=== PATIENT | male | born 1965 | race Caucasian/White ===

== ENCOUNTER 2018-09-06 12:08 | Inpatient (IN) | payer OTHER ==
[2018-09-06 12:34] VITALS: BMI 27.2
--- NOTE | 2018-09-06 17:14 | HP ---
CIWA Score Nausea/Vomitin Muscle Tremors: 4-Moderate,w/Arms Extend Anxiety: 2 Agitation: 2 Paroxysmal Sweats: 1-Minimal Palms Moist Orientation: 0-Oriented Tacttile Disturbances: 0-None Auditory Disturbances: 0-None Visual Disturbances: 0-None Headache: 0-None Present CIWA-Ar Total Score: 11 - Admission Criteria OASAS Guidelines: Admission for Medically Managed Detox: Requires at least one of the followin. CIWA greater than 12 2. Seizures within the past 24 hours 3. Delirium tremens within the past 24 hours 4. Hallucinations within the past 24 hours 5. Acute intervention needed for co occurring medical disorder 6. Acute intervention needed for co occurring psychiatric disorder 7. Severe withdrawal that cannot be handled at a lower level of care (continued vomiting, continued diarrhea, abnormal vital signs) requiring intravenous medication and/or fluids 8. Patient presents the following: Seizures, delirium tremens or hallucinations in the past 12 hours Admission Criteria Met: Admission criteria met Admission ROS S - HPI Chief Complaint: alcohol detox. 52 yo with h/o mental health issues- not taking meds, with alcohol. alcohol- 2 pints a day- h/o seizures/DT's DUR- no meds Utox benzo- takes something EMANUEL- 0.150 Allergies/Adverse Reactions: Allergies Allergy/AdvReac Type Severity Reaction Status Date / Time No Known Allergies Allergy Verified 09/06/18 16:35 Exam Limitations: Clinical Condition, Other (restless) - Ebola screening Have you traveled outside of the country in the last 21 days: No Have you had contact with anyone from an Ebola affected area: No Have you been sick,other than usual withdrawal symptoms: No Do you have a fever: No Patient History - Patient Medical History Hx Asthma: No Hx Chronic Obstructive Pulmonary Disease (COPD): No Hx Cardiac Disorders: Yes (Pt states he was recently dx with AFIB.) Hx Hypertension: No Hx Seizures: Yes (etoh related seizures last 1 week ago.) Hx Diabetes: No Hx Gastrointestinal Disorders: No Hx Genitourinary Disorders: No Hx Sexually Transmitted Disorders: No Hx Renal Disease (ESRD): No Hx Depression: Yes Hx Suicide Attempt: No Hx Schizophrenia: No Other Medical History: testicular cancer- treated - Patient Surgical History Past Surgical History: Yes Other Surgical History: L teste removed in 2000 Anesthesia Reaction: No - PPD History Previous Implant?: Yes Documented Results: Negative w/o proof Implanted On Prior [facility] Admission?: No - Smoking Cessation Smoking history: Never smoked - Substances Abused Alcohol Route: Oral Frequency: Daily Amount used: 2 PINTS VODKA Age of first use: 15 Date of Last Use: 09/06/18 Family Disease History - Family Disease History Family Disease History: Heart Disease: Father, [place]: Mother, Brother Admission Physical Exam [facility] - Vital Signs Vital Signs: Vital Signs - 24 hr 09/06/18 12:33 Temperature 96.9 F L Pulse Rate 110 H Respiratory 18 Rate Blood Pressure 148/100 - Physical General Appearance: Yes: Disheveled, Moderate Distress, Tremorous, Irritable, Anxious HEENTM: Yes: Within Normal Limits Respiratory: Yes: Within Normal Limits, Lungs Clear Cardiology: Yes: Within Normal Limits, Regular Rhythm (no evidence of a fib), Regular Rate, S1, S2 Abdominal: Yes: Within Normal Limits, Non Tender Genitourinary: Yes: Within Normal Limits Back: Yes: Within Normal Limits Musculoskeletal: Yes: Within Normal Limits, full range of Motion Extremities: Yes: Within Normal Limits Neurological: Yes: Within Normal Limits (facial rubor, scaly rash) Lymphatic: Yes: Within Normal Limits - Diagnostic (1) Alcohol use disorder Current Visit: Yes Status: Acute Cleared for Admission [facility] - Detox or Rehab [facility] Level of Care: Medically Managed [facility] Breath Alcohol Content Breath Alcohol Content: 0.150 Urine Drug Screen - Results Drug Screen Negative: No Urine Drug Screen Results: BZO-Benzodiazepines
[2018-09-06] MEDS ORDERED: MAGNESIUM CITRATE 300 ML BOTTLE PO PRN (17:22)
[2018-09-06] MEDS ORDERED: MENTHOL/PHENOL 1 EACH UD MM PRN (17:22)
[2018-09-06] MEDS ORDERED: ACETAMINOPHEN 325 MG TABLET (FP) PO PRN (17:22)
[2018-09-06] MEDS ORDERED: guaiFENesin/D-METHORPHAN HB 10 ML UNIT-DOSE CUPS PO PRN (17:22)
[2018-09-06] MEDS ORDERED: IBUPROFEN 400 MG TABLET (FP) PO PRN (17:22)
[2018-09-06] MEDS ORDERED: MAGNESIUM HYDROX 2400MG/30ML ORAL SUSPENSION 30 ML CUP PO PRN (17:22)
[2018-09-06] MEDS ORDERED: LOPERAMIDE HCL 2 MG CAPSULE PO PRN (17:22)
[2018-09-06] MEDS ORDERED: P-EPHED 60MG/TRIPROLIDI 2.5MG TABLET PO PRN (17:22)
[2018-09-06] MEDS ORDERED: MAG HYDROX/AL HYDROX/SIMETH 30 ML UNIT-DOSE CUP PO PRN (17:22)
[2018-09-06] MEDS ORDERED: chlordiazePOXIDE HCL 25 MG CAPSULE PO PRN (17:24)
[2018-09-06] MEDS ORDERED: chlordiazePOXIDE HCL 25 MG CAPSULE PO ONE (17:45)
[2018-09-06] MEDS: hydrOXYzine PAMOATE 50 MG CAPSULE (FP) PO PRN (19:17)
[2018-09-06] MEDS ORDERED: MELATONIN 5 MG TABLETS PO PRN (22:00)
[2018-09-06] MEDS: chlordiazePOXIDE HCL 25 MG CAPSULE PO SCH (22:05)
[2018-09-06] MEDS: THIAMINE HCL 100 MG TABLET (FP) PO SCH (22:05)
[2018-09-07 02:07] LABS: URINE APPEARANCE CLEAR; URINE BILIRUBIN NEGATIVE (<2.0 mg/dL); URINE COLOR YELLOW; URINE GLUCOSE (UA) NEGATIVE (NEGATIVE); URINE KETONE TRACE (NEGATIVE); URINE LEUK ESTERASE NEGATIVE (NEGATIVE); URINE NITRITE NEGATIVE (NEGATIVE); URINE PROTEIN 2+ (NEGATIVE); URINE UROBILINOGEN NEGATIVE mg/dL (0.2-1.0)
[2018-09-07 02:24] LABS: EPI CELLS RARE /HPF (FEW); GRANULAR CASTS 10 /lpf; URINE HYALINE CAST 7 /lpf; URINE MUCUS RARE
[2018-09-07] MEDS: chlordiazePOXIDE HCL 25 MG CAPSULE PO SCH ×4 (05:46→22:25)
[2018-09-07] MEDS: PRENATAL VITAMINS W/ FOLIC ACID TABLET (FP) PO SCH (10:00)
[2018-09-07 10:47] LABS: HEMATOCRIT 39.4 % (35.4-49); HEMOGLOBIN 13.4 GM/dL (11.7-16.9); MCH 30.2 pg (25.7-33.7); MCHC 34.1 g/dl (32.0-35.9); MEAN CELL VOLUME 88.7 fl (80-96); MEAN PLT VOLUME 8.9 fl (7.5-11.1); PLATELET COUNT 239 K/MM3 (134-434); RBC 4.45 M/mm3 (4.00-5.60); RDW 14.9 % (11.9-15.9); WHITE BLOOD COUNT 6.4 K/mm3 (4.0-10.0)
[2018-09-07 10:48] LABS: ALK PHOS 96 U/L (45-117); ANION GAP 12 MMOL/L (8-16); BLOOD UREA NITROGEN 8 mg/dL (7-18); CALCIUM 9.4 mg/dL (8.5-10.1); CHLORIDE 97 mmol/L (98-107); CO2 26 mmol/L (21-32); CREATININE 0.7 mg/dL (0.55-1.3); GLUCOSE,RANDOM 127 mg/dL (74-106); POTASSIUM 3.8 mmol/L (3.5-5.1); SGOT/AST 36 U/L (15-37); SGPT/ALT 32 U/L (13-61); SODIUM 135 mmol/L (136-145); TOT PROT 7.6 g/dl (6.4-8.2)
--- NOTE | 2018-09-07 11:54 | CONSULT ---
[facility] Psychiatric Consult - Data Date of interview: 09/07/18 Admission source: Friend Identifying data: Mr Owens is a 52 years old male, father of a 20 years old daughter, employed parttime in a car wash, residing at the [facility] seeking detox treatment for alcohol and opioid Substance Abuse History: Reports history of alcohol and heroin use. Refer to addiction counselor's summary for further information Medical History: Significant for atrial fibrillation and history of alcohol withdrawal seizure and and surgery for removal of left testicle for cancer. Psychiatric History: Reports being diagnosed with PTSD/Anxiety years ago. Reports receiving psychiatric treatment on & off at different facilities including [facility] in [place] and [facility] in [place], [place]. He was recently discharged from inpt rehab at [facility] on on Trazadone 50 mg po HS, Seroquel 100 mg po HS, Remeron 15 mg po HS and Buspar 10 mg po TID. Reports hardly taking medications since discharge. He expresses desire to resume taking them during this admission course. Denies previous suicidal attempt. At present, reports feeling anxious and sleeping poorly Physical/Sexual Abuse/Trauma History: Denies history of emotional, physical or sexual abuse as well as DV relationship. No service Mental Status Exam - Mental Status Exam Alert and Oriented to: Time, Place, Person Cognitive Function: Fair Patient Appearance: Well Groomed Mood: Anxious Affect: Appropriate Patient Behavior: Cooperative Speech Pattern: Clear Voice Loudness: Normal Thought Process: Intact, Goal Oriented Thought Disorder: Not Present Hallucinations: Denies Suicidal Ideation: Denies Homicidal Ideation: Denies Insight/Judgement: Fair Sleep: Poorly Appetite: Good Muscle strength/Tone: Normal Gait/Station: Normal Psychiatric Findings - Problem List ([place] 1, 2,3) (1) PTSD (post-traumatic stress disorder) Current Visit: Yes Status: Chronic (2) Alcohol-induced anxiety disorder Current Visit: Yes Status: Acute (3) Alcohol-induced sleep disorder Current Visit: Yes Status: Acute (4) Afib Current Visit: Yes Status: Chronic (5) Testicle cancer Current Visit: Yes Status: Resolved - Initial Treatment Plan Initial Treatment Plan: 1) Resume Buspar 10 mg po TID, Seroquel 10 mg po HS and Trazadone 50 mg po HS. 2) Continue inpatient detoxification
[2018-09-07] MEDS ORDERED: PANTOPRAZOLE 40 MG TABLET (FP) PO ONE (13:40)
[2018-09-07] MEDS: busPIRone HCL 10 MG TABLET (FP) PO SCH ×2 (14:55→21:35)
--- NOTE | 2018-09-07 18:28 | PN ---
S CIWA - CIWA Score Nausea/Vomitin-No Nausea/No Vomiting Muscle Tremors: 3 Anxiety: 4-Mod. Anxious/Guarded Agitation: 3 Paroxysmal Sweats: 3 Orientation: 0-Oriented Tacttile Disturbances: 2-Mild Itch/Numbness/Burn Auditory Disturbances: 0-None Visual Disturbances: 0-None Headache: 0-None Present CIWA-Ar Total Score: 15 BHS Progress Note (SOAP) Subjective: Sweating, Tremors, Interrupted Sleep, Anxious, Diarrhea. Objective: PATIENT A & O X 3, OBSERVED AMBULATING ON UNIT. IN NO ACUTE DISTRESS. 09/07/18 18:25 Vital Signs Temperature 99.3 F 09/07/18 17:18 Pulse Rate 96 H 09/07/18 17:18 Respiratory Rate 20 09/07/18 17:18 Blood Pressure 133/80 09/07/18 17:18 O2 Sat by Pulse Oximetry (%) Laboratory Tests 09/07/18 09/07/18 09/07/18 00:30 07:00 07:00 WBC 6.4 RBC 4.45 Hgb 13.4 Hct 39.4 MCV 88.7 MCH 30.2 MCHC 34.1 RDW 14.9 Plt Count 239 MPV 8.9 Sodium 135 L Potassium 3.8 Chloride 97 L Carbon Dioxide 26 Anion Gap 12 BUN 8 Creatinine 0.7 Creat Clearance w eGFR > 60 Random Glucose 127 H Calcium 9.4 Total Bilirubin 2.0 H AST 36 ALT 32 Alkaline Phosphatase 96 Total Protein 7.6 Albumin 4.0 Urine Color Yellow Urine Appearance Clear Urine pH 5.0 Ur Specific [place] 1.018 Urine Protein 2+ H Urine Glucose (UA) Negative Urine Ketones Trace H Urine Blood 1+ H Urine Nitrite Negative Urine Bilirubin Negative Urine Urobilinogen Negative Ur Leukocyte Esterase Negative Urine WBC (Auto) 1 Urine RBC (Auto) 1 Ur Epithelial Cells Rare Hyaline Casts 7 Granular Casts 10 Urine Mucus Rare LABS NOTED. RPR RESULT PENDING. 09/07/18 18:27 Assessment: 09/07/18 18:26 WITHDRAWAL SYMPTOMS. Plan: CONTINUE DETOX. INCREASE DAILY PO FLUID INTAKE. PRN IMMODIUM PO FOR DIARRHEA..
[2018-09-07] MEDS: QUEtiapine FUMARATE 100 MG TABLET (FP) PO SCH (21:35)
[2018-09-07] MEDS: traZODone HCL 50 MG TABLET (FP) PO SCH (21:35)
[2018-09-07] MEDS: THIAMINE HCL 100 MG TABLET (FP) PO SCH (21:35)
[2018-09-08] MEDS: chlordiazePOXIDE HCL 25 MG CAPSULE PO SCH ×3 (05:39→17:16)
[2018-09-08] MEDS: busPIRone HCL 10 MG TABLET (FP) PO SCH ×3 (05:39→22:06)
[2018-09-08] MEDS: PANTOPRAZOLE 40 MG TABLET (FP) PO SCH (05:41)
[2018-09-08] MEDS: PRENATAL VITAMINS W/ FOLIC ACID TABLET (FP) PO SCH (10:04)
[2018-09-08] MEDS: hydrOXYzine PAMOATE 50 MG CAPSULE (FP) PO PRN ×2 (13:54→22:09)
--- NOTE | 2018-09-08 15:56 | PN ---
[facility] CIWA - CIWA Score Nausea/Vomitin-No Nausea/No Vomiting Muscle Tremors: None Anxiety: 4-Mod. Anxious/Guarded Agitation: 3 Paroxysmal Sweats: 2 Orientation: 0-Oriented Tacttile Disturbances: 2-Mild Itch/Numbness/Burn Auditory Disturbances: 0-None Visual Disturbances: 0-None Headache: 0-None Present CIWA-Ar Total Score: 11 S Progress Note (SOAP) Subjective: Diarrhea, Anxious, Sweating. Objective: PATIENT A & O X 3, OBSERVED AMBULATING ON UNIT. IN NO ACUTE DISTRESS. 09/08/18 15:56 Vital Signs Temperature 97.5 F L 09/08/18 13:59 Pulse Rate 108 H 09/08/18 13:59 Respiratory Rate 18 09/08/18 13:59 Blood Pressure 133/82 09/08/18 13:59 O2 Sat by Pulse Oximetry (%) Laboratory Tests 09/07/18 09/07/18 09/07/18 00:30 07:00 07:00 WBC 6.4 RBC 4.45 Hgb 13.4 Hct 39.4 MCV 88.7 MCH 30.2 MCHC 34.1 RDW 14.9 Plt Count 239 MPV 8.9 Sodium 135 L Potassium 3.8 Chloride 97 L Carbon Dioxide 26 Anion Gap 12 BUN 8 Creatinine 0.7 Creat Clearance w eGFR > 60 Random Glucose 127 H Calcium 9.4 Total Bilirubin 2.0 H AST 36 ALT 32 Alkaline Phosphatase 96 Total Protein 7.6 Albumin 4.0 Urine Color Yellow Urine Appearance Clear Urine pH 5.0 Ur Specific [place] 1.018 Urine Protein 2+ H Urine Glucose (UA) Negative Urine Ketones Trace H Urine Blood 1+ H Urine Nitrite Negative Urine Bilirubin Negative Urine Urobilinogen Negative Ur Leukocyte Esterase Negative Urine WBC (Auto) 1 Urine RBC (Auto) 1 Ur Epithelial Cells Rare Hyaline Casts 7 Granular Casts 10 Urine Mucus Rare RPR Titer 09/07/18 07:00 WBC RBC Hgb Hct MCV MCH MCHC RDW Plt Count MPV Sodium Potassium Chloride Carbon Dioxide Anion Gap BUN Creatinine Creat Clearance w eGFR Random Glucose Calcium Total Bilirubin AST ALT Alkaline Phosphatase Total Protein Albumin Urine Color Urine Appearance Urine pH Ur Specific [place] Urine Protein Urine Glucose (UA) Urine Ketones Urine Blood Urine Nitrite Urine Bilirubin Urine Urobilinogen Ur Leukocyte Esterase Urine WBC (Auto) Urine RBC (Auto) Ur Epithelial Cells Hyaline Casts Granular Casts Urine Mucus RPR Titer Nonreactive LABS NOTED. Assessment: 09/08/18 15:57 WITHDRAWAL SYMPTOMS. Plan: CONTINUE DETOX. INCREASE DAILY PO FLUID INTAKE. PRN IMMODIUM PO FOR DIARRHEA.
[2018-09-08] MEDS: traZODone HCL 50 MG TABLET (FP) PO SCH (22:03)
[2018-09-08] MEDS: THIAMINE HCL 100 MG TABLET (FP) PO SCH (22:03)
[2018-09-08] MEDS: QUEtiapine FUMARATE 100 MG TABLET (FP) PO SCH (22:03)
[2018-09-08] MEDS: chlordiazePOXIDE 5 MG CAPSULE PO SCH (22:04)
[2018-09-09] MEDS: busPIRone HCL 10 MG TABLET (FP) PO SCH ×3 (05:34→22:04)
[2018-09-09] MEDS: chlordiazePOXIDE 5 MG CAPSULE PO SCH ×3 (05:34→17:31)
[2018-09-09] MEDS: PANTOPRAZOLE 40 MG TABLET (FP) PO SCH (05:34)
[2018-09-09] MEDS: hydrOXYzine PAMOATE 50 MG CAPSULE (FP) PO PRN ×2 (09:46→15:55)
[2018-09-09] MEDS: PRENATAL VITAMINS W/ FOLIC ACID TABLET (FP) PO SCH (09:46)
--- NOTE | 2018-09-09 10:12 | PN ---
[facility] Progress Note (SOAP) Subjective: feeling better mild tremor less sweating social with peers in day room discuss aftercare Objective: 09/09/18 10:10 Vital Signs Temperature 97.0 F L 09/09/18 09:40 Pulse Rate 105 H 09/09/18 09:40 Respiratory Rate 18 09/09/18 09:40 Blood Pressure 132/78 09/09/18 09:40 O2 Sat by Pulse Oximetry (%) Laboratory Last Values WBC 6.4 K/mm3 (4.0-10.0) 09/07/18 07:00 RBC 4.45 M/mm3 (4.00-5.60) 09/07/18 07:00 Hgb 13.4 GM/dL (11.7-16.9) 09/07/18 07:00 Hct 39.4 % (35.4-49) 09/07/18 07:00 MCV 88.7 fl (80-96) 09/07/18 07:00 MCH 30.2 pg (25.7-33.7) 09/07/18 07:00 MCHC 34.1 g/dl (32.0-35.9) 09/07/18 07:00 RDW 14.9 % (11.9-15.9) 09/07/18 07:00 Plt Count 239 K/MM3 (134-434) 09/07/18 07:00 MPV 8.9 fl (7.5-11.1) 09/07/18 07:00 Sodium 135 mmol/L (136-145) L 09/07/18 07:00 Potassium 3.8 mmol/L (3.5-5.1) 09/07/18 07:00 Chloride 97 mmol/L (98-107) L 09/07/18 07:00 Carbon Dioxide 26 mmol/L (21-32) 09/07/18 07:00 Anion Gap 12 MMOL/L (8-16) 09/07/18 07:00 BUN 8 mg/dL (7-18) 09/07/18 07:00 Creatinine 0.7 mg/dL (0.55-1.3) 09/07/18 07:00 Creat Clearance w eGFR > 60 (>60) 09/07/18 07:00 Random Glucose 127 mg/dL (74-106) H 09/07/18 07:00 Calcium 9.4 mg/dL (8.5-10.1) 09/07/18 07:00 Total Bilirubin 2.0 mg/dL (0.2-1) H 09/07/18 07:00 AST 36 U/L (15-37) 09/07/18 07:00 ALT 32 U/L (13-61) 09/07/18 07:00 Alkaline Phosphatase 96 U/L (45-117) 09/07/18 07:00 Total Protein 7.6 g/dl (6.4-8.2) 09/07/18 07:00 Albumin 4.0 g/dl (3.4-5.0) 09/07/18 07:00 Urine Color Yellow 09/07/18 00:30 Urine Appearance Clear 09/07/18 00:30 Urine pH 5.0 (5.0-8.0) 09/07/18 00:30 Ur Specific [place] 1.018 (1.010-1.035) 09/07/18 00:30 Urine Protein 2+ (NEGATIVE) H 09/07/18 00:30 Urine Glucose (UA) Negative (NEGATIVE) 09/07/18 00:30 Urine Ketones Trace (NEGATIVE) H 09/07/18 00:30 Urine Blood 1+ (NEGATIVE) H 09/07/18 00:30 Urine Nitrite Negative (NEGATIVE) 09/07/18 00:30 Urine Bilirubin Negative (<2.0 mg/dL) 09/07/18 00:30 Urine Urobilinogen Negative mg/dL (0.2-1.0) 09/07/18 00:30 Ur Leukocyte Esterase Negative (NEGATIVE) 09/07/18 00:30 Urine WBC (Auto) 1 /hpf (3-5) 09/07/18 00:30 Urine RBC (Auto) 1 /hpf (0-3) 09/07/18 00:30 Ur Epithelial Cells Rare /HPF (FEW) 09/07/18 00:30 Hyaline Casts 7 /lpf 09/07/18 00:30 Granular Casts 10 /lpf 09/07/18 00:30 Urine Mucus Rare 09/07/18 00:30 RPR Titer Nonreactive (NONREACTIVE) 09/07/18 07:00 lab noted discuss important of oral hydration and healthy life style such as nutrition Assessment: 02/03/19 10:12 mild withdrawal sx Plan: continue detox
[2018-09-09] MEDS ORDERED: BENZOCAINE 28 GM HEMORRHOIDAL OINTMENT PR PRN (13:25)
--- NOTE | 2018-09-09 15:47 | EKG ---
Test Reason : Blood Pressure : / mmHG Vent. Rate : 096 BPM Atrial Rate : 096 BPM P-R Int : 204 ms QRS Dur : 094 ms QT Int : 360 ms P-R-T Axes : 046 -07 030 degrees QTc Int : 454 ms NORMAL SINUS RHYTHM NORMAL ECG NO PREVIOUS ECGS AVAILABLE Confirmed by YUMIKO DASILVA MD ([id number]) on 09/09/2018 3:46:43 PM Referred By: Confirmed By:YUMIKO DASILVA MD
[2018-09-09] MEDS: traZODone HCL 50 MG TABLET (FP) PO SCH (22:04)
[2018-09-09] MEDS: THIAMINE HCL 100 MG TABLET (FP) PO SCH (22:04)
[2018-09-09] MEDS: chlordiazePOXIDE HCL 10 MG CAPSULE PO SCH (22:04)
[2018-09-09] MEDS: QUEtiapine FUMARATE 100 MG TABLET (FP) PO SCH (22:04)
[2018-09-10] MEDS: chlordiazePOXIDE HCL 10 MG CAPSULE PO SCH (05:36)
[2018-09-10] MEDS: busPIRone HCL 10 MG TABLET (FP) PO SCH (05:36)
[2018-09-10] MEDS: PANTOPRAZOLE 40 MG TABLET (FP) PO SCH (07:00)
[2018-09-10 09:10] VITALS: BP 118/81; PULSE 101; TEMP 96.3
--- NOTE | 2018-09-10 10:53 | DS ---
[facility] Detox Discharge Summary Admission Date: 09/06/18 Discharge Date: 09/10/18 - History Present History: Alcohol Dependence Additional Comments: 32 years old male admitted on 09/06/18 for alcohol withdrawal stabilization completed alcohol detox regimen aftercare [facility] Pertinent Past History: provided list of medication informed bring medication list and medication bottles to medical mental and addiction appointments update medication list if any change in medications bring lab results to aftercare appointments - Physical Exam Results Vital Signs: Vital Signs Temperature 96.3 F L 09/10/18 09:09 Pulse Rate 101 H 09/10/18 09:09 Respiratory Rate 20 09/10/18 09:09 Blood Pressure 118/81 09/10/18 09:09 O2 Sat by Pulse Oximetry (%) Pertinent Admission Physical Exam Findings: alcohol withdrawal sx Laboratory Last Values WBC 6.4 K/mm3 (4.0-10.0) 09/07/18 07:00 RBC 4.45 M/mm3 (4.00-5.60) 09/07/18 07:00 Hgb 13.4 GM/dL (11.7-16.9) 09/07/18 07:00 Hct 39.4 % (35.4-49) 09/07/18 07:00 MCV 88.7 fl (80-96) 09/07/18 07:00 MCH 30.2 pg (25.7-33.7) 09/07/18 07:00 MCHC 34.1 g/dl (32.0-35.9) 09/07/18 07:00 RDW 14.9 % (11.9-15.9) 09/07/18 07:00 Plt Count 239 K/MM3 (134-434) 09/07/18 07:00 MPV 8.9 fl (7.5-11.1) 09/07/18 07:00 Sodium 135 mmol/L (136-145) L 09/07/18 07:00 Potassium 3.8 mmol/L (3.5-5.1) 09/07/18 07:00 Chloride 97 mmol/L (98-107) L 09/07/18 07:00 Carbon Dioxide 26 mmol/L (21-32) 09/07/18 07:00 Anion Gap 12 MMOL/L (8-16) 09/07/18 07:00 BUN 8 mg/dL (7-18) 09/07/18 07:00 Creatinine 0.7 mg/dL (0.55-1.3) 09/07/18 07:00 Creat Clearance w eGFR > 60 (>60) 09/07/18 07:00 Random Glucose 127 mg/dL (74-106) H 09/07/18 07:00 Calcium 9.4 mg/dL (8.5-10.1) 09/07/18 07:00 Total Bilirubin 2.0 mg/dL (0.2-1) H 09/07/18 07:00 AST 36 U/L (15-37) 09/07/18 07:00 ALT 32 U/L (13-61) 09/07/18 07:00 Alkaline Phosphatase 96 U/L (45-117) 09/07/18 07:00 Total Protein 7.6 g/dl (6.4-8.2) 09/07/18 07:00 Albumin 4.0 g/dl (3.4-5.0) 09/07/18 07:00 Urine Color Yellow 09/07/18 00:30 Urine Appearance Clear 09/07/18 00:30 Urine pH 5.0 (5.0-8.0) 09/07/18 00:30 Ur Specific [place] 1.018 (1.010-1.035) 09/07/18 00:30 Urine Protein 2+ (NEGATIVE) H 09/07/18 00:30 Urine Glucose (UA) Negative (NEGATIVE) 09/07/18 00:30 Urine Ketones Trace (NEGATIVE) H 09/07/18 00:30 Urine Blood 1+ (NEGATIVE) H 09/07/18 00:30 Urine Nitrite Negative (NEGATIVE) 09/07/18 00:30 Urine Bilirubin Negative (<2.0 mg/dL) 09/07/18 00:30 Urine Urobilinogen Negative mg/dL (0.2-1.0) 09/07/18 00:30 Ur Leukocyte Esterase Negative (NEGATIVE) 09/07/18 00:30 Urine WBC (Auto) 1 /hpf (3-5) 09/07/18 00:30 Urine RBC (Auto) 1 /hpf (0-3) 09/07/18 00:30 Ur Epithelial Cells Rare /HPF (FEW) 09/07/18 00:30 Hyaline Casts 7 /lpf 09/07/18 00:30 Granular Casts 10 /lpf 09/07/18 00:30 Urine Mucus Rare 09/07/18 00:30 RPR Titer Nonreactive (NONREACTIVE) 09/07/18 07:00 lab noted - Treatment Hospital Course: Detox Protocol Followed, Detoxed Safely, Responded well, Discharged Condition Good, Rehab Referral Accepted Patient has Accepted a Rehab Referral to: [facility] - Medication Discharge Medications: Ambulatory Orders Buspirone HCl [Buspar -] 10 mg PO BID 09/06/18 Quetiapine Fumarate [Seroquel -] 100 mg PO HS 09/06/18 traZODone HCL [Desyrel -] 100 mg PO HS 09/06/18 Pantoprazole Sodium [Protonix -] 40 mg PO DAILY@0600 tablet.ec 09/09/18 Buspirone HCl [Buspar -] 10 mg PO TID #90 tablet 09/10/18 Quetiapine Fumarate [Seroquel] 100 mg PO HS #30 tablet 09/10/18 traZODone HCL [Desyrel -] 50 mg PO HS #30 tablet 09/10/18 - Diagnosis (1) Alcohol dependence with uncomplicated withdrawal Status: Acute (2) Substance induced mood disorder Status: Suspected - AMA Did Patient Leave Against Medical Advice: No
== END 2018-09-10 09:18 | disposition home or self-care (01) | DRG 775 ==
LOC: EDBD → YASAS 12:08 → Y3N 17:26
PROVIDERS: ADMIT Neuromusculoskeletal Medicine & OMM; ATTEND Neuromusculoskeletal Medicine & OMM
PROC: HZ2ZZZZ Detoxification Services for Substance Abuse Treatment (ICD-10-PCS; principal; 2018-09-06)
DX: F10.230 Alcohol dependence with withdrawal, uncomplicated (principal); F10.280 Alcohol dependence with alcohol-induced anxiety disorder; F10.282 Alcohol dependence with alcohol-induced sleep disorder; F19.24 Other psychoactive substance dependence with psychoactive substance-induced mood disorder; F43.10 Post-traumatic stress disorder, unspecified; I48.91 Unspecified atrial fibrillation; Z85.47 Personal history of malignant neoplasm of testis; Z86.69 Personal history of other diseases of the nervous system and sense organs
CPT/HCPCS: 36415; 80053; 81003; 81015; 85027; 86593; 93005; 93010

== ENCOUNTER 2018-10-08 12:01 | Inpatient (IN) | payer OTHER ==
[2018-10-08 13:03] VITALS: BMI 29.2
--- NOTE | 2018-10-08 14:37 | HP ---
CIWA Score - Admission Criteria OASAS Guidelines: Admission for Medically Managed Detox: Requires at least one of the followin. CIWA greater than 12 2. Seizures within the past 24 hours 3. Delirium tremens within the past 24 hours 4. Hallucinations within the past 24 hours 5. Acute intervention needed for co occurring medical disorder 6. Acute intervention needed for co occurring psychiatric disorder 7. Severe withdrawal that cannot be handled at a lower level of care (continued vomiting, continued diarrhea, abnormal vital signs) requiring intravenous medication and/or fluids 8. Admission ROS S - HPI Chief Complaint: i am here for rehab from alcohol Allergies/Adverse Reactions: Allergies Allergy/AdvReac Type Severity Reaction Status Date / Time No Known Allergies Allergy Verified 10/08/18 13:38 History of Present Illness: this 52 years old male with alcohol dependence,seeking rehab,last detox to 09/10/18 completed fell depressed admitted to [facility] 09/27/18 to 10/08/18 need to go to rehab history od anxiety,depression,ptsd history of atrial fibrillation plan for rehab - Ebola screening Have you traveled outside of the country in the last 21 days: No Have you had contact with anyone from an Ebola affected area: No Have you been sick,other than usual withdrawal symptoms: No Do you have a fever: No - Review of Systems Constitutional: No Symptoms Reported EENT: reports: No Symptoms Reported Respiratory: reports: No Symptoms reported Cardiac: reports: No Symptoms Reported, Other (history of atrial fibrillation) GI: reports: No Symptoms Reported : reports: No Symptoms Reported Musculoskeletal: reports: No Symptoms Reported Integumentary: reports: No Symptoms Reported Neuro: reports: No Symptoms reported Endocrine: reports: No Symptoms Reported Hematology: reports: No Symptoms Reported Psychiatric: reports: No Sypmtoms Reported, Judgement Intact, Mood/Affect Appropiate, Orientated x3, Anxious, Depressed Other Systems: Reviewed and Negative Patient History - Patient Medical History Hx Asthma: No Hx Chronic Obstructive Pulmonary Disease (COPD): No Hx Cardiac Disorders: No Hx Hypertension: No Hx Seizures: Yes (alcohol related-last episode was a year ago) Hx Diabetes: No Hx Gastrointestinal Disorders: Yes (acid reflux) Hx Genitourinary Disorders: No Hx Sexually Transmitted Disorders: No Hx Renal Disease (ESRD): No Hx Thyroid Disease: No Hx Human Immunodeficiency Virus (HIV): No (last 2017 negative) Hx Hepatitis C: No Hx Depression: Yes (anxiety,insomnia) Hx Suicide Attempt: No Hx Bipolar Disorder: No Hx Schizophrenia: No Other Medical History: no suicidal,no homicidal,history of atrial fibrillation - Patient Surgical History Past Surgical History: Yes Hx Neurologic Surgery: No Hx Cataract Extraction: No Hx Lung Surgery: No Hx Breast Surgery: No Hx Breast Biopsy: No Hx Abdominal Surgery: No Hx Appendectomy: No Hx Cholecystectomy: No Hx Genitourinary Surgery: No Hx Section: No Hx Orthopedic Surgery: No Other Surgical History: L testes removed in 2000 (testicular ca) Anesthesia Reaction: No - PPD History Previous Implant?: Yes Documented Results: Negative w/proof Implanted On Prior [facility] Admission?: Yes Date: 09/08/18 Results: 0 mm PPD to be Administered?: No - Smoking Cessation Smoking history: Never smoked Have you smoked in the past 12 months: No Hx Chewing Tobacco Use: No Initiated information on smoking cessation: No - Substance & Tx. History Hx Alcohol Use: Yes Hx Substance Use: No Substance Use Type: Alcohol Hx Substance Use Treatment: Yes ([facility] 09/06/18 to ) - Substances Abused Alcohol-beer/vodka Route: Oral Frequency: 3-6 times per week Amount used: 2 (12 oz.)/1-2 pts. Age of first use: 14 Date of Last Use: 09/26/18 Family Disease History - Family Disease History Family Disease History: Heart Disease: Father, [place]: Mother, Brother Admission Physical Exam [facility] - Vital Signs Vital Signs: Vital Signs - 24 hr 10/08/18 13:01 Temperature 99.3 F Pulse Rate 77 Respiratory 17 Rate Blood Pressure 137/89 - Physical General Appearance: Yes: Within Normal Limits HEENTM: Yes: Within Normal Limits, Normal ENT Inspection, Pharynx Normal Respiratory: Yes: Within Normal Limits, Lungs Clear, Normal Breath Sounds Neck: Yes: Within Normal Limits, Supple, Trachea in good position Breast: Yes: Within Normal Limits Cardiology: Yes: Within Normal Limits, Regular Rhythm, Regular Rate, S1, S2 Abdominal: Yes: Within Normal Limits, Normal Bowel Sounds, Non Tender, Soft Genitourinary: Yes: Other (s/p orchdectomy left 2000,s/p radiation,on remission) Back: Yes: Within Normal Limits Musculoskeletal: Yes: Within Normal Limits Extremities: Yes: Within Normal Limits, Normal Inspection, Normal Range of Motion Neurological: Yes: Within Normal Limits, personnel quality assurance auditor II-XII NML intact, Fully Oriented, Alert, Motor Strength 5/5 Integumentary: Yes: Within Normal Limits Lymphatic: Yes: Within Normal Limits - Diagnostic (1) Alcohol dependence Current Visit: Yes Status: Chronic (2) Testicle cancer Current Visit: No Status: Resolved (3) History of atrial fibrillation Current Visit: Yes Status: Acute (4) Substance induced mood disorder Current Visit: Yes Status: Chronic (5) Insomnia secondary to depression with anxiety Current Visit: Yes Status: Acute Cleared for Admission [facility] - Detox or Rehab Claeared for Rehab Admission: Yes [facility] Breath Alcohol Content Breath Alcohol Content: 0 Urine Drug Screen - Results Drug Screen Negative: No Urine Drug Screen Results: BZO-Benzodiazepines Inpatient Rehab Admission - Rehab Decision to Admit Inpatient rehab admission?: Yes - Initial Determination Are CD services needed?: Yes Free of communicable disease: Yes Not in need of hospitalization: Yes - Rehab Admission Criteria Previous failed treatment: Yes Poor recovery environment: Yes Comorbidities: Yes Lacks judgement: No Patient is meeting Inpatient Rehab admission criteria:: Yes
[2018-10-08] MEDS ORDERED: LOPERAMIDE HCL 2 MG CAPSULE PO PRN (14:51)
[2018-10-08] MEDS ORDERED: MAGNESIUM CITRATE 300 ML BOTTLE PO PRN (14:51)
[2018-10-08] MEDS ORDERED: IBUPROFEN 400 MG TABLET (FP) PO PRN (14:51)
[2018-10-08] MEDS ORDERED: guaiFENesin/D-METHORPHAN HB 10 ML UNIT-DOSE CUPS PO PRN (14:51)
[2018-10-08] MEDS ORDERED: MAGNESIUM HYDROX 2400MG/30ML ORAL SUSPENSION 30 ML CUP PO PRN (14:51)
[2018-10-08] MEDS ORDERED: P-EPHED 60MG/TRIPROLIDI 2.5MG TABLET PO PRN (14:51)
[2018-10-08] MEDS ORDERED: MAG HYDROX/AL HYDROX/SIMETH 30 ML UNIT-DOSE CUP PO PRN (14:51)
[2018-10-08] MEDS ORDERED: MENTHOL/PHENOL 1 EACH UD MM PRN (14:51)
[2018-10-08] MEDS ORDERED: ACETAMINOPHEN 325 MG TABLET (FP) PO PRN (14:51)
[2018-10-08 16:46] LABS: HEMATOCRIT 40.2 % (35.4-49); HEMOGLOBIN 13.9 GM/dL (11.7-16.9); MCH 30.9 pg (25.7-33.7); MCHC 34.5 g/dl (32.0-35.9); MEAN CELL VOLUME 89.6 fl (80-96); PLATELET COUNT 279 K/MM3 (134-434); RBC 4.49 M/mm3 (4.00-5.60); RDW 14.8 % (11.9-15.9); WHITE BLOOD COUNT 6.9 K/mm3 (4.0-10.0)
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
[2018-10-08 17:01] LABS: ALBUMIN 4.2 g/dl (3.4-5.0); ALK PHOS 79 U/L (45-117); ANION GAP 7 MMOL/L (8-16); BILIRUBIN,TOTAL 0.2 mg/dL (0.2-1); BLOOD UREA NITROGEN 14 mg/dL (7-18); CALCIUM 9.6 mg/dL (8.5-10.1); CHLORIDE 103 mmol/L (98-107); CO2 27 mmol/L (21-32); GLUCOSE,RANDOM 85 mg/dL (74-106); SGOT/AST 26 U/L (15-37); SGPT/ALT 49 U/L (13-61); SODIUM 138 mmol/L (136-145)
[2018-10-08 20:33] LABS: URINE APPEARANCE CLEAR; URINE BILIRUBIN NEGATIVE (<2.0 mg/dL); URINE COLOR LTYELLOW; URINE GLUCOSE (UA) NEGATIVE (NEGATIVE); URINE KETONE NEGATIVE (NEGATIVE); URINE LEUK ESTERASE NEGATIVE (NEGATIVE); URINE NITRITE NEGATIVE (NEGATIVE); URINE PROTEIN NEGATIVE (NEGATIVE); URINE UROBILINOGEN NEGATIVE mg/dL (0.2-1.0)
[2018-10-08] MEDS: busPIRone HCL 10 MG TABLET (FP) PO SCH (21:50)
[2018-10-08] MEDS: traZODone HCL 50 MG TABLET (FP) PO SCH (21:50)
[2018-10-08] MEDS: QUEtiapine FUMARATE 200 MG TABLET PO SCH (21:50)
[2018-10-08] MEDS: THIAMINE HCL 100 MG TABLET (FP) PO SCH (21:50)
[2018-10-08] MEDS ORDERED: MELATONIN 5 MG TABLETS PO PRN (22:00)
[2018-10-08] MEDS ORDERED: PRAZOSIN HCL 1 MG CAPSULE PO SCH (22:00)
[2018-10-08] MEDS: PRAZOSIN HCL 1 MG CAPSULE PO SCH (22:10)
[2018-10-09] MEDS: busPIRone HCL 10 MG TABLET (FP) PO SCH ×3 (06:24→21:29)
[2018-10-09] MEDS: ASPIRIN 81 MG PO SCH (06:25)
[2018-10-09] MEDS: PATIENT'S OWN MEDICATION (NON-FORMULARY) (Omeprazole [Omeprazole] 20 MG) PO SCH (06:25)
[2018-10-09] MEDS: DILTIAZEM HCL 180 MG PO SCH (06:26)
[2018-10-09] MEDS ORDERED: ASPIRIN 81 MG CHEWABLE TABLETS PO SCH (07:00)
[2018-10-09] MEDS: PRENATAL VITAMINS W/ FOLIC ACID TABLET (FP) PO SCH (10:14)
[2018-10-09] MEDS: hydrOXYzine PAMOATE 50 MG CAPSULE (FP) PO PRN ×3 (10:14→21:30)
[2018-10-09] MEDS ORDERED: COLLOIDAL OATMEAL 1 BAR EACH TP PRN (10:56)
[2018-10-09] MEDS ORDERED: BACITRACIN 15 GM TUBE TOPICAL OINTMENT TP SCH (10:56)
--- NOTE | 2018-10-09 11:04 | PN ---
[facility] Progress Note Note: PT IS A NEW ADMISSION ON 10/08/18 FROM [facility] PSYCH INPATIENT HERE FOR REHAB. PT C/O FACIAL SKIN REDNESS AROUND BEARDED AREA ON MOUTH AND NOSE SINCE USING LOTION SUPPLIED HERE ON ADMISSION. PT REPORTS HX DRY SKIN. REQUESTING CHANGE IN SKIN CARE PRODUCT. DENIES ITCH, BURNING OR PAIN TO AFFECTED AREA. Vital Signs (72 hours) 10/08/18 10/08/18 10/08/18 13:01 16:33 21:00 Temperature 99.3 F 99.6 F Pulse Rate 77 81 75 Respiratory 17 18 Rate Blood Pressure 137/89 158/99 137/78 10/09/18 10/09/18 10/09/18 00:30 03:30 07:07 Temperature 97.3 F L Pulse Rate 73 Respiratory 18 18 18 Rate Blood Pressure 116/67 Laboratory Tests 10/08/18 10/08/18 10/08/18 15:00 15:00 15:00 WBC 6.9 RBC 4.49 Hgb 13.9 Hct 40.2 MCV 89.6 MCH 30.9 MCHC 34.5 RDW 14.8 Plt Count 279 MPV 9.0 Sodium 138 Potassium 4.0 Chloride 103 Carbon Dioxide 27 Anion Gap 7 L BUN 14 Creatinine 1.0 Creat Clearance w eGFR > 60 Random Glucose 85 Calcium 9.6 Total Bilirubin 0.2 AST 26 ALT 49 Alkaline Phosphatase 79 Total Protein 8.0 Albumin 4.2 Urine Color Urine Appearance Urine pH Ur Specific [place] Urine Protein Urine Glucose (UA) Urine Ketones Urine Blood Urine Nitrite Urine Bilirubin Urine Urobilinogen Ur Leukocyte Esterase RPR Titer Nonreactive 10/08/18 15:40 WBC RBC Hgb Hct MCV MCH MCHC RDW Plt Count MPV Sodium Potassium Chloride Carbon Dioxide Anion Gap BUN Creatinine Creat Clearance w eGFR Random Glucose Calcium Total Bilirubin AST ALT Alkaline Phosphatase Total Protein Albumin Urine Color Ltyellow Urine Appearance Clear Urine pH 7.0 D Ur Specific [place] 1.013 Urine Protein Negative Urine Glucose (UA) Negative Urine Ketones Negative Urine Blood Negative Urine Nitrite Negative Urine Bilirubin Negative Urine Urobilinogen Negative Ur Leukocyte Esterase Negative RPR Titer FACE:REDNESS WITH NO SWELLING/WHEALS OR BUMP AROUND BEARDED MOUTH AREAS,NOSE AND BETWEEN EYEBROWS. DRYNESS AND SLIGHTLY SCALY ON SKIN AROUND NOSE. A:DRY SKIN DERMATITIS PLAN:BACITRACIN OINTMENT AVEENO SOAP EUCERIN CREAM PT AGREED TO POC REPORT TO STAFF IF SX PERSIST.
[2018-10-09] MEDS ORDERED: MINERAL OIL/PETROLAT/WATER TOPICAL CREAM 113 GM JAR TP SCH (12:45)
--- NOTE | 2018-10-09 14:01 | EKG ---
Test Reason : Blood Pressure : / mmHG Vent. Rate : 069 BPM Atrial Rate : 069 BPM P-R Int : 176 ms QRS Dur : 100 ms QT Int : 432 ms P-R-T Axes : 034 008 020 degrees QTc Int : 462 ms NORMAL SINUS RHYTHM NORMAL ECG WHEN COMPARED WITH ECG OF 06-SEP-2018 18:23, NO SIGNIFICANT CHANGE WAS FOUND Confirmed by MD Luther Daniel ([id number]) on 10/09/2018 2:01:19 PM Referred By: Confirmed By:Uriah Luther MD
[2018-10-09] MEDS: THIAMINE HCL 100 MG TABLET (FP) PO SCH (21:28)
[2018-10-09] MEDS: BACITRACIN 0.9 GM PACKET TP SCH (21:28)
[2018-10-09] MEDS: traZODone HCL 50 MG TABLET (FP) PO SCH (21:29)
[2018-10-09] MEDS: PRAZOSIN HCL 1 MG CAPSULE PO SCH (21:29)
[2018-10-09] MEDS: QUEtiapine FUMARATE 200 MG TABLET PO SCH (21:29)
[2018-10-10] MEDS: ASPIRIN 81 MG PO SCH (06:26)
[2018-10-10] MEDS: busPIRone HCL 10 MG TABLET (FP) PO SCH ×3 (06:26→21:36)
[2018-10-10] MEDS: DILTIAZEM HCL 180 MG PO SCH (06:26)
[2018-10-10] MEDS: hydrOXYzine PAMOATE 50 MG CAPSULE (FP) PO PRN ×4 (06:29→21:36)
[2018-10-10] MEDS: PATIENT'S OWN MEDICATION (NON-FORMULARY) (Omeprazole [Omeprazole] 20 MG) PO SCH (06:57)
[2018-10-10] MEDS: BACITRACIN 0.9 GM PACKET TP SCH ×2 (09:58→21:37)
[2018-10-10] MEDS: PRENATAL VITAMINS W/ FOLIC ACID TABLET (FP) PO SCH (09:58)
[2018-10-10] MEDS: THIAMINE HCL 100 MG TABLET (FP) PO SCH (21:35)
[2018-10-10] MEDS: QUEtiapine FUMARATE 200 MG TABLET PO SCH (21:35)
[2018-10-10] MEDS: traZODone HCL 50 MG TABLET (FP) PO SCH (21:35)
[2018-10-10] MEDS: PRAZOSIN HCL 1 MG CAPSULE PO SCH (21:36)
[2018-10-11] MEDS: busPIRone HCL 10 MG TABLET (FP) PO SCH ×3 (06:26→21:39)
[2018-10-11] MEDS: ASPIRIN 81 MG PO SCH (06:27)
[2018-10-11] MEDS: PATIENT'S OWN MEDICATION (NON-FORMULARY) (Omeprazole [Omeprazole] 20 MG) PO SCH (06:28)
[2018-10-11] MEDS: hydrOXYzine PAMOATE 50 MG CAPSULE (FP) PO PRN ×4 (06:28→21:41)
[2018-10-11] MEDS: DILTIAZEM HCL 180 MG PO SCH (06:28)
[2018-10-11] MEDS: PRENATAL VITAMINS W/ FOLIC ACID TABLET (FP) PO SCH (09:48)
[2018-10-11] MEDS: BACITRACIN 0.9 GM PACKET TP SCH (09:48)
--- NOTE | 2018-10-11 11:04 | PN ---
[facility] Progress Note Note: Patient is currently on Trazadone 50 mg po HS. Told handbook writer that he wants Trazadone dosage to be increased since he was on 200 mg when he came in. Will increase Trazadone dosage to 100 mg po HS
[2018-10-11] MEDS: HYDROCORTISONE 1% TOPICAL CREAM 30 GM TUBE TP SCH ×2 (13:15→21:40)
[2018-10-11] MEDS: THIAMINE HCL 100 MG TABLET (FP) PO SCH (21:39)
[2018-10-11] MEDS: QUEtiapine FUMARATE 200 MG TABLET PO SCH (21:39)
[2018-10-11] MEDS: traZODone HCL 100 MG TABLET (FP) PO SCH (21:39)
[2018-10-11] MEDS: PRAZOSIN HCL 1 MG CAPSULE PO SCH (21:40)
[2018-10-11] MEDS ORDERED: BACITRACIN 0.9 GM PACKET TP SCH (22:00)
[2018-10-12] MEDS: busPIRone HCL 10 MG TABLET (FP) PO SCH ×2 (06:17→14:17)
[2018-10-12] MEDS: PRENATAL VITAMINS W/ FOLIC ACID TABLET (FP) PO SCH (06:17)
[2018-10-12] MEDS: ASPIRIN 81 MG PO SCH (06:17)
[2018-10-12] MEDS: DILTIAZEM HCL 180 MG PO SCH (06:17)
[2018-10-12] MEDS: PATIENT'S OWN MEDICATION (NON-FORMULARY) (Omeprazole [Omeprazole] 20 MG) PO SCH (06:18)
[2018-10-12] MEDS: hydrOXYzine PAMOATE 50 MG CAPSULE (FP) PO PRN ×3 (06:18→15:55)
[2018-10-12] MEDS: HYDROCORTISONE 1% TOPICAL CREAM 30 GM TUBE TP SCH (14:01)
[2018-10-13] MEDS: THIAMINE HCL 100 MG TABLET (FP) PO SCH ×2 (00:03→21:39)
[2018-10-13] MEDS: busPIRone HCL 10 MG TABLET (FP) PO SCH ×4 (00:03→21:39)
[2018-10-13] MEDS: QUEtiapine FUMARATE 200 MG TABLET PO SCH ×2 (00:03→21:39)
[2018-10-13] MEDS: traZODone HCL 100 MG TABLET (FP) PO SCH ×2 (00:03→21:39)
[2018-10-13] MEDS: HYDROCORTISONE 1% TOPICAL CREAM 30 GM TUBE TP SCH ×3 (00:03→21:39)
[2018-10-13] MEDS: PRAZOSIN HCL 1 MG CAPSULE PO SCH ×2 (00:03→21:39)
[2018-10-13] MEDS: hydrOXYzine PAMOATE 50 MG CAPSULE (FP) PO PRN ×4 (00:04→15:16)
[2018-10-13] MEDS: PRENATAL VITAMINS W/ FOLIC ACID TABLET (FP) PO SCH (06:34)
[2018-10-13] MEDS: DILTIAZEM HCL 180 MG PO SCH (06:35)
[2018-10-13] MEDS: ASPIRIN 81 MG PO SCH (06:37)
[2018-10-13] MEDS: PATIENT'S OWN MEDICATION (NON-FORMULARY) (Omeprazole [Omeprazole] 20 MG) PO SCH (06:37)
[2018-10-14] MEDS: ASPIRIN 81 MG PO SCH (06:47)
[2018-10-14] MEDS: PATIENT'S OWN MEDICATION (NON-FORMULARY) (Omeprazole [Omeprazole] 20 MG) PO SCH (06:48)
[2018-10-14] MEDS: DILTIAZEM HCL 180 MG PO SCH (06:48)
[2018-10-14] MEDS: busPIRone HCL 10 MG TABLET (FP) PO SCH ×3 (06:48→21:17)
[2018-10-14] MEDS: PRENATAL VITAMINS W/ FOLIC ACID TABLET (FP) PO SCH (06:48)
[2018-10-14] MEDS: hydrOXYzine PAMOATE 50 MG CAPSULE (FP) PO PRN ×3 (06:50→17:32)
[2018-10-14] MEDS: HYDROCORTISONE 1% TOPICAL CREAM 30 GM TUBE TP SCH ×2 (10:10→21:18)
[2018-10-14] MEDS: QUEtiapine FUMARATE 200 MG TABLET PO SCH (21:17)
[2018-10-14] MEDS: traZODone HCL 100 MG TABLET (FP) PO SCH (21:17)
[2018-10-14] MEDS: PRAZOSIN HCL 1 MG CAPSULE PO SCH (21:17)
[2018-10-14] MEDS: THIAMINE HCL 100 MG TABLET (FP) PO SCH (21:17)
[2018-10-15] MEDS: PRENATAL VITAMINS W/ FOLIC ACID TABLET (FP) PO SCH (07:03)
[2018-10-15] MEDS: busPIRone HCL 10 MG TABLET (FP) PO SCH ×3 (07:03→21:29)
[2018-10-15] MEDS: ASPIRIN 81 MG PO SCH (07:03)
[2018-10-15] MEDS: hydrOXYzine PAMOATE 50 MG CAPSULE (FP) PO PRN ×3 (07:04→21:30)
[2018-10-15] MEDS: DILTIAZEM HCL 180 MG PO SCH (07:48)
[2018-10-15] MEDS: PATIENT'S OWN MEDICATION (NON-FORMULARY) (Omeprazole [Omeprazole] 20 MG) PO SCH (07:50)
[2018-10-15] MEDS: HYDROCORTISONE 1% TOPICAL CREAM 30 GM TUBE TP SCH ×2 (10:35→21:55)
[2018-10-15] MEDS: THIAMINE HCL 100 MG TABLET (FP) PO SCH (21:29)
[2018-10-15] MEDS: traZODone HCL 100 MG TABLET (FP) PO SCH (21:29)
[2018-10-15] MEDS: QUEtiapine FUMARATE 200 MG TABLET PO SCH (21:29)
[2018-10-15] MEDS: PRAZOSIN HCL 1 MG CAPSULE PO SCH (21:30)
[2018-10-16] MEDS: PATIENT'S OWN MEDICATION (NON-FORMULARY) (Omeprazole [Omeprazole] 20 MG) PO SCH (06:24)
[2018-10-16] MEDS: DILTIAZEM HCL 180 MG PO SCH (06:24)
[2018-10-16] MEDS: ASPIRIN 81 MG PO SCH (06:25)
[2018-10-16] MEDS: PRENATAL VITAMINS W/ FOLIC ACID TABLET (FP) PO SCH (06:25)
[2018-10-16] MEDS: busPIRone HCL 10 MG TABLET (FP) PO SCH ×3 (06:25→21:46)
[2018-10-16] MEDS: hydrOXYzine PAMOATE 50 MG CAPSULE (FP) PO PRN ×4 (06:26→21:48)
[2018-10-16] MEDS: HYDROCORTISONE 1% TOPICAL CREAM 30 GM TUBE TP SCH (10:25)
--- NOTE | 2018-10-16 14:55 | PN ---
[facility] Progress Note Note: Patient will be discharged tomorrow. Scripts for 30 days supply of medications( Seroquel, Buspar, Prazosin, Trazadone) will be electronically transmitted to [facility] at [address] [place] [id number]
[2018-10-16] MEDS: QUEtiapine FUMARATE 200 MG TABLET PO SCH (21:46)
[2018-10-16] MEDS: traZODone HCL 100 MG TABLET (FP) PO SCH (21:46)
[2018-10-16] MEDS: THIAMINE HCL 100 MG TABLET (FP) PO SCH (21:46)
[2018-10-16] MEDS: PRAZOSIN HCL 1 MG CAPSULE PO SCH (21:47)
[2018-10-17] MEDS: busPIRone HCL 10 MG TABLET (FP) PO SCH (06:26)
[2018-10-17] MEDS: hydrOXYzine PAMOATE 50 MG CAPSULE (FP) PO PRN (06:26)
[2018-10-17] MEDS: PATIENT'S OWN MEDICATION (NON-FORMULARY) (Omeprazole [Omeprazole] 20 MG) PO SCH (06:28)
[2018-10-17] MEDS: DILTIAZEM HCL 180 MG PO SCH (06:28)
[2018-10-17] MEDS: PRENATAL VITAMINS W/ FOLIC ACID TABLET (FP) PO SCH (06:29)
[2018-10-17] MEDS: ASPIRIN 81 MG PO SCH (06:31)
[2018-10-17 06:51] VITALS: BP 113/72; PULSE 61; TEMP 98
--- NOTE | 2018-10-17 09:43 | PN ---
[facility] Progress Note Note: PT COMPLETED REHAB AND DISCHARGING TODAY. PT MET WITH HIS COUNSELOR, KIARA ABBASI AND PT HAS BEEN REFERRED TO [facility] ADMISSIONS ON [address] [place], [place], [place]. PT REPORTS MEDICAL CARE WITH [facility] WHILE AT THE [facility] AND WILL FOLLOW UP WITH THEM IF NEEDED BEFORE RELOCATING TO [facility] WHERE HE HOPES TO RESIDE. PT HAS FULL BOTTLES OF HIS MEDICATIONS CURRENTLY AND HAS NO NEED AT THIS TIME. ALERT O X 3. ENIES S/H/I. Home Medications Medication Instructions Recorded traZODone HCL [Desyrel -] 200 mg PO HS 09/06/18 Aspirin [ASA -] 81 mg PO AM 10/08/18 Buspirone HCl [Buspar -] 30 mg PO BID 10/08/18 Diltiazem HCl [Diltiazem 24Hr ER] 180 mg PO AM 10/08/18 Melatonin 10 mg PO HS 10/08/18 Mirtazapine [Remeron -] 30 mg PO HS 10/08/18 Omeprazole 20 mg PO AM 10/08/18 Prazosin HCl [Minipress -] 2 mg PO HS 10/08/18 Quetiapine Fumarate [Seroquel] 300 mg PO HS 10/08/18 hydrOXYzine PAMOATE [Vistaril -] 100 mg PO HS 10/08/18 Buspirone HCl [Buspar -] 10 mg PO TID #90 tablet 10/16/18 Quetiapine Fumarate [Seroquel -] 200 mg PO HS #30 tablet 10/16/18 traZODone HCL [Desyrel -] 100 mg PO HS #30 tablet 10/16/18 Vital Signs - 24 hr 10/16/18 10/17/18 10/17/18 22:20 00:30 03:30 Temperature Pulse Rate 57 L Respiratory 18 18 Rate Blood Pressure 112/59 L 10/17/18 06:48 Temperature 98.0 F Pulse Rate 61 Respiratory 18 Rate Blood Pressure 113/72 Laboratory Tests 10/08/18 10/08/18 10/08/18 15:00 15:00 15:00 WBC 6.9 RBC 4.49 Hgb 13.9 Hct 40.2 MCV 89.6 MCH 30.9 MCHC 34.5 RDW 14.8 Plt Count 279 MPV 9.0 Sodium 138 Potassium 4.0 Chloride 103 Carbon Dioxide 27 Anion Gap 7 L BUN 14 Creatinine 1.0 Creat Clearance w eGFR > 60 Random Glucose 85 Calcium 9.6 Total Bilirubin 0.2 AST 26 ALT 49 Alkaline Phosphatase 79 Total Protein 8.0 Albumin 4.2 Urine Color Urine Appearance Urine pH Ur Specific [place] Urine Protein Urine Glucose (UA) Urine Ketones Urine Blood Urine Nitrite Urine Bilirubin Urine Urobilinogen Ur Leukocyte Esterase RPR Titer Nonreactive 10/08/18 15:40 WBC RBC Hgb Hct MCV MCH MCHC RDW Plt Count MPV Sodium Potassium Chloride Carbon Dioxide Anion Gap BUN Creatinine Creat Clearance w eGFR Random Glucose Calcium Total Bilirubin AST ALT Alkaline Phosphatase Total Protein Albumin Urine Color Ltyellow Urine Appearance Clear Urine pH 7.0 D Ur Specific [place] 1.013 Urine Protein Negative Urine Glucose (UA) Negative Urine Ketones Negative Urine Blood Negative Urine Nitrite Negative Urine Bilirubin Negative Urine Urobilinogen Negative Ur Leukocyte Esterase Negative RPR Titer NAD MEDICALLY STABLE. PLAN:FOLLOW UP WITH [facility] RECOMMENDED ON 10/18/18 9:00 A.M FOLLOW UP WITH PRIMARY CARE AT [facility] 1-2 WEEKS AFTER DISCHARGE.
== END 2018-10-17 10:50 | disposition home or self-care (01) | DRG 772 ==
LOC: YASAS 12:01 → Y5N 15:26
PROVIDERS: ADMIT Neuromusculoskeletal Medicine & OMM; ATTEND Neuromusculoskeletal Medicine & OMM
PROC: HZ42ZZZ Group Counseling for Substance Abuse Treatment, Cognitive-Behavioral (ICD-10-PCS; principal; 2018-10-08)
DX: F10.20 Alcohol dependence, uncomplicated (principal); F19.24 Other psychoactive substance dependence with psychoactive substance-induced mood disorder; F43.10 Post-traumatic stress disorder, unspecified; F51.05 Insomnia due to other mental disorder; I48.91 Unspecified atrial fibrillation; L30.9 Dermatitis, unspecified; K21.9 Gastro-esophageal reflux disease without esophagitis; Z85.47 Personal history of malignant neoplasm of testis; Z86.69 Personal history of other diseases of the nervous system and sense organs; Z91.19 Patient's noncompliance with other medical treatment and regimen
CPT/HCPCS: 36415; 80053; 81003; 85027; 86593; 93005; 93010

== ENCOUNTER 2018-11-15 10:00 | Inpatient (IN) | payer OTHER ==
[2018-11-15 10:34] VITALS: BMI 26.9
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
[2018-11-15] MEDS ORDERED: MAGNESIUM CITRATE 300 ML BOTTLE PO PRN (11:26)
[2018-11-15] MEDS ORDERED: MAG HYDROX/AL HYDROX/SIMETH 30 ML UNIT-DOSE CUP PO PRN (11:26)
[2018-11-15] MEDS ORDERED: MENTHOL/PHENOL 1 EACH UD MM PRN (11:26)
[2018-11-15] MEDS ORDERED: ACETAMINOPHEN 325 MG TABLET (FP) PO PRN ×2 (11:26)
[2018-11-15] MEDS ORDERED: IBUPROFEN 400 MG TABLET (FP) PO PRN (11:26)
[2018-11-15] MEDS ORDERED: MAGNESIUM HYDROX 2400MG/30ML ORAL SUSPENSION 30 ML CUP PO PRN (11:26)
[2018-11-15] MEDS ORDERED: BISMUTH SUBSALICYLATE 262 MG/15 ML BTL PO PRN (11:26)
[2018-11-15] MEDS: chlordiazePOXIDE HCL 25 MG CAPSULE PO PRN (12:52)
[2018-11-15] MEDS: chlordiazePOXIDE HCL 25 MG CAPSULE PO SCH ×2 (16:51→21:59)
[2018-11-15 17:03] LABS: HEMATOCRIT 39.9 % (35.4-49); HEMOGLOBIN 13.5 GM/dL (11.7-16.9); MCH 30.2 pg (25.7-33.7); MCHC 33.8 g/dl (32.0-35.9); MEAN CELL VOLUME 89.2 fl (80-96); MEAN PLT VOLUME 8.3 fl (7.5-11.1); PLATELET COUNT 201 K/MM3 (134-434); RBC 4.47 M/mm3 (4.00-5.60); RDW 15.3 % (11.9-15.9); WHITE BLOOD COUNT 4.6 K/mm3 (4.0-10.0)
[2018-11-15 17:10] LABS: ALK PHOS 81 U/L (45-117); ANION GAP 11 MMOL/L (8-16); BILIRUBIN,TOTAL 0.4 mg/dL (0.2-1); BLOOD UREA NITROGEN 8 mg/dL (7-18); CALCIUM 8.3 mg/dL (8.5-10.1); CHLORIDE 101 mmol/L (98-107); CO2 26 mmol/L (21-32); CREATININE 0.7 mg/dL (0.55-1.3); GLUCOSE,RANDOM 108 mg/dL (74-106); POTASSIUM 4.1 mmol/L (3.5-5.1); SGOT/AST 16 U/L (15-37); SGPT/ALT 19 U/L (13-61); SODIUM 138 mmol/L (136-145); TOT PROT 7.8 g/dl (6.4-8.2)
[2018-11-15] MEDS: MELATONIN 5 MG TABLETS PO PRN (21:59)
[2018-11-15] MEDS: hydrOXYzine PAMOATE 25 MG CAPSULE (FP) PO PRN (21:59)
[2018-11-15] MEDS: THIAMINE HCL 100 MG TABLET (FP) PO SCH (21:59)
[2018-11-15] MEDS ORDERED: QUEtiapine FUMARATE 25 MG TABLET (FP) PO SCH (22:00)
[2018-11-16] MEDS: chlordiazePOXIDE HCL 25 MG CAPSULE PO SCH ×4 (05:54→22:06)
[2018-11-16] MEDS: ASPIRIN 81 MG CHEWABLE TABLETS PO SCH (06:23)
[2018-11-16] MEDS: PRENATAL VITAMINS W/ FOLIC ACID TABLET (FP) PO SCH (10:17)
[2018-11-16] MEDS: hydrOXYzine PAMOATE 25 MG CAPSULE (FP) PO PRN ×2 (12:25→18:32)
[2018-11-16] MEDS: chlordiazePOXIDE HCL 25 MG CAPSULE PO PRN (12:25)
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
--- NOTE | 2018-11-16 17:35 | PN ---
S CIWA - CIWA Score Nausea/Vomitin-No Nausea/No Vomiting Muscle Tremors: 3 Anxiety: 5 Agitation: 3 Paroxysmal Sweats: 3 Orientation: 0-Oriented Tacttile Disturbances: 1-Very Mild Itch/Numbness Auditory Disturbances: 0-None Visual Disturbances: 2-Mild Sensitivity Headache: 0-None Present CIWA-Ar Total Score: 17 BHS Progress Note (SOAP) Subjective: Interrupted Sleep, Poor Appetite, Chills, Tremors, Sweating, Anxious. Objective: PATIENT A & O X 3, OBSERVED AMBULATING ON UNIT. IN NO ACUTE DISTRESS. 11/16/18 17:34 Vital Signs Temperature 97.1 F L 11/16/18 13:25 Pulse Rate 87 11/16/18 13:25 Respiratory Rate 18 11/16/18 13:25 Blood Pressure 126/71 11/16/18 13:25 O2 Sat by Pulse Oximetry (%) Laboratory Tests 11/15/18 11/15/18 11/15/18 12:00 12:00 12:00 WBC 4.6 RBC 4.47 Hgb 13.5 Hct 39.9 MCV 89.2 MCH 30.2 MCHC 33.8 RDW 15.3 Plt Count 201 D MPV 8.3 Sodium 138 Potassium 4.1 Chloride 101 Carbon Dioxide 26 Anion Gap 11 BUN 8 Creatinine 0.7 Creat Clearance w eGFR 117.52 Random Glucose 108 H Calcium 8.3 L Total Bilirubin 0.4 AST 16 ALT 19 Alkaline Phosphatase 81 Total Protein 7.8 Albumin 4.0 RPR Titer Nonreactive LABS NOTED. Assessment: 11/16/18 17:34 WITHDRAWAL SYMPTOMS. Plan: CONTINUE DETOX. INCREASE DAILY PO FLUID INTAKE.
[2018-11-16] MEDS ORDERED: hydrOXYzine PAMOATE 50 MG CAPSULE (FP) PO SCH (22:00)
[2018-11-16] MEDS ORDERED: PRAZOSIN HCL 2 MG CAPSULE PO SCH (22:00)
[2018-11-16] MEDS: PRAZOSIN HCL 1 MG CAPSULE PO SCH (22:06)
[2018-11-16] MEDS: THIAMINE HCL 100 MG TABLET (FP) PO SCH (22:06)
[2018-11-16] MEDS: QUEtiapine FUMARATE 100 MG TABLET (FP) PO SCH (22:07)
[2018-11-16] MEDS: MELATONIN 5 MG TABLETS PO PRN (22:07)
[2018-11-17] MEDS: ASPIRIN 81 MG CHEWABLE TABLETS PO SCH (06:15)
[2018-11-17] MEDS: chlordiazePOXIDE HCL 25 MG CAPSULE PO SCH ×2 (06:15→10:21)
[2018-11-17] MEDS: PRENATAL VITAMINS W/ FOLIC ACID TABLET (FP) PO SCH (10:21)
[2018-11-17] MEDS: hydrOXYzine PAMOATE 25 MG CAPSULE (FP) PO PRN ×2 (13:16→22:02)
--- NOTE | 2018-11-17 14:01 | PN ---
[facility] CIWA - CIWA Score Nausea/Vomitin-No Nausea/No Vomiting Muscle Tremors: None Anxiety: 3 Agitation: 0-Normal Activity Paroxysmal Sweats: 3 Orientation: 0-Oriented Tacttile Disturbances: 2-Mild Itch/Numbness/Burn Auditory Disturbances: 1-Very Mild Visual Disturbances: 2-Mild Sensitivity Headache: 0-None Present CIWA-Ar Total Score: 11 BHS Progress Note (SOAP) Subjective: Interrupted Sleep, Chills, Tremors, Sweating, Anxious. Objective: PATIENT A & O X 3, OBSERVED AMBULATING ON UNIT. IN NO ACUTE DISTRESS. 11/17/18 14:00 Vital Signs Temperature 96.8 F L 11/17/18 09:33 Pulse Rate 86 11/17/18 09:33 Respiratory Rate 18 11/17/18 09:33 Blood Pressure 142/82 11/17/18 09:33 O2 Sat by Pulse Oximetry (%) Laboratory Tests 11/15/18 11/15/18 11/15/18 12:00 12:00 12:00 WBC 4.6 RBC 4.47 Hgb 13.5 Hct 39.9 MCV 89.2 MCH 30.2 MCHC 33.8 RDW 15.3 Plt Count 201 D MPV 8.3 Sodium 138 Potassium 4.1 Chloride 101 Carbon Dioxide 26 Anion Gap 11 BUN 8 Creatinine 0.7 Creat Clearance w eGFR 117.52 Random Glucose 108 H Calcium 8.3 L Total Bilirubin 0.4 AST 16 ALT 19 Alkaline Phosphatase 81 Total Protein 7.8 Albumin 4.0 RPR Titer Nonreactive LABS NOTED. Assessment: 11/17/18 14:00 WITHDRAWAL SYMPTOMS. Plan: CONTINUE DETOX. INCREASE DAILY PO FLUID INTAKE.
[2018-11-17] MEDS ORDERED: chlordiazePOXIDE HCL 10 MG CAPSULE PO PRN ×2 (17:00→19:05)
[2018-11-17] MEDS: chlordiazePOXIDE HCL 10 MG CAPSULE PO SCH ×2 (17:14→22:00)
[2018-11-17] MEDS: THIAMINE HCL 100 MG TABLET (FP) PO SCH (22:00)
[2018-11-17] MEDS: MELATONIN 5 MG TABLETS PO PRN (22:00)
[2018-11-17] MEDS: QUEtiapine FUMARATE 100 MG TABLET (FP) PO SCH (22:00)
[2018-11-17] MEDS: PRAZOSIN HCL 1 MG CAPSULE PO SCH (22:00)
[2018-11-18] MEDS: chlordiazePOXIDE HCL 10 MG CAPSULE PO SCH ×2 (05:22→10:41)
[2018-11-18] MEDS: ASPIRIN 81 MG CHEWABLE TABLETS PO SCH (06:21)
[2018-11-18 09:32] VITALS: BP 133/73; PULSE 91; TEMP 97.8
[2018-11-18] MEDS: PRENATAL VITAMINS W/ FOLIC ACID TABLET (FP) PO SCH (10:41)
--- NOTE | 2018-11-18 12:00 | DS ---
[facility] Detox Discharge Summary Admission Date: 11/15/18 Discharge Date: 11/18/18 - History Present History: Alcohol Dependence Additional Comments: 52 years old male admitted on 11/15/18 for alcohol withdrawal stabilizatin feeling better today preferring begin alcohol rehab today alert no acute distress denies suicidal ideation aftercare revelation Pertinent Past History: patient agrees to return to [facility] tomorrow for rehab admission bring in medication list and lab report to aftercare appointment update medication list when change medication - Physical Exam Results Vital Signs: Vital Signs Temperature 97.8 F 11/18/18 09:31 Pulse Rate 91 H 11/18/18 09:31 Respiratory Rate 18 11/18/18 09:31 Blood Pressure 133/73 11/18/18 09:31 O2 Sat by Pulse Oximetry (%) Pertinent Admission Physical Exam Findings: alcohol withdrawal sx Laboratory Last Values WBC 4.6 K/mm3 (4.0-10.0) 11/15/18 12:00 RBC 4.47 M/mm3 (4.00-5.60) 11/15/18 12:00 Hgb 13.5 GM/dL (11.7-16.9) 11/15/18 12:00 Hct 39.9 % (35.4-49) 11/15/18 12:00 MCV 89.2 fl (80-96) 11/15/18 12:00 MCH 30.2 pg (25.7-33.7) 11/15/18 12:00 MCHC 33.8 g/dl (32.0-35.9) 11/15/18 12:00 RDW 15.3 % (11.9-15.9) 11/15/18 12:00 Plt Count 201 K/MM3 (134-434) D 11/15/18 12:00 MPV 8.3 fl (7.5-11.1) 11/15/18 12:00 Sodium 138 mmol/L (136-145) 11/15/18 12:00 Potassium 4.1 mmol/L (3.5-5.1) 11/15/18 12:00 Chloride 101 mmol/L (98-107) 11/15/18 12:00 Carbon Dioxide 26 mmol/L (21-32) 11/15/18 12:00 Anion Gap 11 MMOL/L (8-16) 11/15/18 12:00 BUN 8 mg/dL (7-18) 11/15/18 12:00 Creatinine 0.7 mg/dL (0.55-1.3) 11/15/18 12:00 Creat Clearance w eGFR 117.52 (>60) 11/15/18 12:00 Random Glucose 108 mg/dL (74-106) H 11/15/18 12:00 Calcium 8.3 mg/dL (8.5-10.1) L 11/15/18 12:00 Total Bilirubin 0.4 mg/dL (0.2-1) 11/15/18 12:00 AST 16 U/L (15-37) 11/15/18 12:00 ALT 19 U/L (13-61) 11/15/18 12:00 Alkaline Phosphatase 81 U/L (45-117) 11/15/18 12:00 Total Protein 7.8 g/dl (6.4-8.2) 11/15/18 12:00 Albumin 4.0 g/dl (3.4-5.0) 11/15/18 12:00 RPR Titer Nonreactive (NONREACTIVE) 11/15/18 12:00 lab noted - Treatment Hospital Course: Detox Protocol Followed, Detoxed Safely, Responded well, Discharged Condition Good, Rehab Referral Accepted Patient has Accepted a [facility] Referral to[facility] - Medication Discharge Medications: Ambulatory Orders Aspirin [ASA -] 81 mg PO AM 10/08/18 Buspirone HCl [Buspar -] 30 mg PO BID 10/08/18 Diltiazem HCl [Diltiazem 24Hr ER] 180 mg PO AM 10/08/18 Mirtazapine [Remeron -] 30 mg PO HS 10/08/18 Prazosin HCl [Minipress -] 2 mg PO HS 10/08/18 Quetiapine Fumarate [Seroquel] 300 mg PO HS 10/08/18 hydrOXYzine PAMOATE [Vistaril -] 50 mg PO HS 10/08/18 traZODone HCL [Desyrel -] 100 mg PO HS #30 tablet 10/16/18 Prazosin HCl [Minipress -] 2 mg PO HS #14 capsule 11/17/18 Quetiapine Fumarate [Seroquel] 100 mg PO HS #30 tablet 11/17/18 - Diagnosis (1) Alcohol dependence with uncomplicated withdrawal Status: Acute (2) Afib Status: Chronic Qualifiers: Atrial fibrillation type: unspecified Qualified Code(s): I48.91 - Unspecified atrial fibrillation (3) Substance induced mood disorder Status: Suspected - AMA Did Patient Leave Against Medical Advice: No
[2018-11-18] MEDS ORDERED: chlordiazePOXIDE HCL 10 MG CAPSULE PO SCH (17:00)
== END 2018-11-18 09:45 | disposition home or self-care (01) | DRG 775 ==
LOC: YASAS 10:00 → Y3N 12:10
PROVIDERS: ADMIT Surgery; ATTEND Surgery
PROC: HZ2ZZZZ Detoxification Services for Substance Abuse Treatment (ICD-10-PCS; principal; 2018-11-15)
DX: F10.230 Alcohol dependence with withdrawal, uncomplicated (principal); F19.24 Other psychoactive substance dependence with psychoactive substance-induced mood disorder; F43.10 Post-traumatic stress disorder, unspecified; F31.9 Bipolar disorder, unspecified; F41.8 Other specified anxiety disorders; G47.00 Insomnia, unspecified; I48.91 Unspecified atrial fibrillation; Z85.47 Personal history of malignant neoplasm of testis; Z90.79 Acquired absence of other genital organ(s); Z91.19 Patient's noncompliance with other medical treatment and regimen
CPT/HCPCS: 36415; 80053; 85027; 86593

== ENCOUNTER 2018-12-27 18:13 | Observation (INO) | payer OTHER | END 2018-12-29 10:48 | disposition short-term general hospital (02) | LOC: JER 18:13 → J6S 12-28 14:21 → JERBED 20:11 ==